=== PATIENT | male | born 1990 | race African-American/Black ===

== ENCOUNTER 2021-12-30 12:21 | Emergency (ER) | payer MEDICAID ==
[~2021-12-30] VITALS: Ht 188 cm; Wt 145.0 kg
[2021-12-30 12:29] VITALS: BP 115/73
[2021-12-30] MEDS ORDERED: ONDANSETRON 4MG ODT PO STA (14:52)
== END 2021-12-30 15:06 | disposition left against medical advice (07) ==
LOC: ER 12:34
DX: R10.84 Generalized abdominal pain (principal); F12.10 Cannabis abuse, uncomplicated
CPT/HCPCS: 99283